=== PATIENT | female | born 1950 | race Two or more races ===

== ENCOUNTER → 2017-09-28 | Outpatient (CLI) | payer OTHER | LOC: CIMAGING 14:08 | DX: Z12.31 Encounter for screening mammogram for malignant neoplasm of breast (principal) ==

== ENCOUNTER 2017-12-23 23:08 | Emergency (ER) | payer OTHER ==
[2017-12-23] MEDS ORDERED: TDAP ADULT 0.5 ML INJ (BOOSTRIX) IM ONE (23:22)
[2017-12-23] MEDS ORDERED: LET GEL TOPICAL 1 EA SYR TP ONE (23:34)
--- NOTE | 2017-12-23 23:37 | EDPHY ---
H & P Time Seen by Provider: 12/23/17 23:22 HPI/ROS: CC: trip and fall HPI: This 67-year-old female with past medical history significant only for trigeminal neuralgia presents to the emergency room today with her after tripping and falling over a parking curb after dinner out this evening. She was looking up at the [place] and tripped over the parking curb falling onto her left outstretched hand approximately one hour prior to arrival. She has pain, swelling and a deformity of her left wrist. She has pain over the lateral aspect of her left foot. She has an abrasion over her right knee and a small laceration near her right eyebrow. She feels like she has a bruise over her right jaw but states she can't open her mouth fine. She felt slightly dizzy afterward but denies loss consciousness. She does not have a headache. She denies neck pain, back pain, rib pain, abdominal pain, or hip pain. She denies preceding symptoms such as headache, dizziness, chest pain, palpitations , shortness of breath, abdominal pain or any other concerns. She is not on blood thinners. REVIEW OF SYSTEMS: Constitutional: No fever, no chills. Eyes: No discharge. ENT: No sore throat. Respiratory: No cough, no shortness of breath. Cardiac: No chest pain, no palpitations. Gastrointestinal: No abdominal pain, no vomiting. 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 Jon Social History: . Denies tobacco use, denies alcohol use, denies marijuana use. Smoking Status: Never smoked Physical Exam: General Appearance: Alert, mild distress. HEENT: Normocephalic, 1 cm linear laceration just below right eyebrow, no significant soft tissue swelling, tenderness over the right cheek just below the zygomatic arch without palpable abnormality, patient is able to open and close her jaw without difficulty. No malocclusion, no dental or other intraoral injury. Pupils equally round reactive light accommodation, tympanic membranes clear without hemotympanum. Neck: Supple, nontender, no bony step-offs. Back: Nontender without palpable abnormality. Thorax: Nontender without palpable abnormality. Respiratory: Clear to auscultation bilaterally, breath sounds equal. No rales , rhonchi, or wheezing. Cardiovascular: Regular rate and rhythm. No murmurs, gallops, or rubs Gastrointestinal: Abdomen is soft and nontender. Neurological: Awake and alert, sensory and motor exams grossly normal. Skin: Warm and dry, laceration below the right eyebrow as described above. Abrasion to the right patella. Musculoskeletal: There is an obvious bony abnormality of the patient's left wrist. Radial pulse intact. She is tender over the base of the 5th metatarsal left foot. Minimal tenderness over the right patella. No other musculoskeletal abnormality. Psychiatric: Patient is oriented X 3, there is no agitation. DIFFERENTIAL DIAGNOSIS: After history and physical exam differential diagnosis was considered for but not limited to: syncope, arrhythmia, mechanical fall, head injury, laceration, wrist fracture, foot fracture. 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 Wrist X-Ray 12/23/17 23:22 Impression: 1. Comminuted intra-articular fracture of the distal radial metaphysis with mild dorsal angulation. 2. Mildly displaced ulnar styloid fracture. Imaging: I viewed and interpreted images myself Procedures: Procedure: Laceration repair. Verbal consent was obtained from the patient. The 1 cm simple laceration under the right eyebrow was anesthetized using LET. The wound was cleansed and was deemed appropriate for repair with Dermabond. There were no deep structures involved. The wound was repaired with Dermabond and overlying 1/8 inch steri- strips. The wound repair was tolerated well. The procedure was performed by myself and took 5 minutes. ED Course/Re-evaluation: The patient was seen and examined. Vital signs reviewed. Her tetanus immunization was updated. A head CT was discussed with the patient and her who is also a physician. CT scan was declined. He will watch her closely and will bring her back to the emergency department if she develops a headache or any other concerning findings. The small laceration over her right eyebrow was repaired with Dermabond and Steri-Strips. Please refer to procedure note. An x-ray of her left wrist revealed a comminuted, intra- articular distal radial fracture with mild dorsal angulation as well as an ulnar styloid fracture. An x-ray of her left foot showed a mildly displaced avulsion fracture of the 5th metatarsal. The orthopedic physician economic research assistant, Min Rodriguez, was consulted. He asked that the patient call their office tomorrow , Monday, at about noon and they will arrange for follow-up appointment by Monday of this week. A sugar-tong splint was placed on the patient's left upper extremity by the Jovanni Holland. CMS intact status post application as evaluated by me. A sling was applied to the left upper extremity as well. A walking boot was placed on the left lower extremity. The patient was given a take-home pack of Franklin to take as directed as needed. All questions were answered. - Data Points Medications Given: Discontinued Medications Hydrocodone Bitart/Acetaminophen (Franklin 5/325mg Prepack#6) 1 btl TAKEHOME EDNOW ONE Stop: 12/24/17 00:42 Last Admin: 12/24/17 00:47 Dose: 1 btl Diphtheria/Tetanus/Acell Pertussis (Boostrix) 0.5 ml IM .ONCE ONE Stop: 12/23/17 23:23 Last Admin: 12/23/17 23:43 Dose: 0.5 ml Tetracaine/Epinephrine/Lidocaine (Let Gel Topical) 1 ea TP EDNOW ONE Stop: 12/23/17 23:35 Last Admin: 12/23/17 23:41 Dose: 1 ea Departure - Departure Disposition: Home, Routine, Self-Care Clinical Impression: Simple laceration of face Wrist fracture, left Qualifiers: Encounter type: initial encounter Fracture type: closed Qualified Code(s): S62.102A - Fracture of unspecified carpal bone, left wrist, initial encounter for closed fracture Foot fracture, left Qualifiers: Encounter type: initial encounter Fracture type: closed Qualified Code(s): S92.902A - Unspecified fracture of left foot, initial encounter for closed fracture Condition: Good Instructions: Hydrocodone/Acetaminophen (By mouth), Wrist Fracture in Adults ( ED), Foot Fracture in Adults (ED), Splint Care (ED), Steristrips (ED) Additional Instructions: Call Agatha at [facility] tomorrow just after 12 o'clock noon at [phone] to schedule your follow up appointment which will be by Monday of this week. We spoke to the orthopedic physician's economic research assistant HARSH Palma from the Emergency Department. You have been given six tablets of hydrocodone/acetaminophen (also known as Franklin or Vicodin) for pain. Take as directed. Do not take additional Tylenol ( acetaminophen) while taking this medication. You may take ibuprofen as directed. Return to the ER if you have any further problems or concerns. Referrals: Robe Avelar MD [Medical Doctor] - As per Instructions
[2017-12-24] MEDS ORDERED: SKIN ADHESIVE (DERMABOND) 1 EACH TP ONE (00:32)
[2017-12-24] MEDS ORDERED: HYDROCOD/APAP 5/325 PREPACK#6 BTL TAKEHOME ONE (00:41)
[2017-12-24 00:52] VITALS: BP 121/62
== END 2017-12-24 01:01 | disposition home or self-care (01) ==
LOC: CED 23:08
DX: S52.612A Displaced fracture of left ulna styloid process, initial encounter for closed fracture (principal); S92.352A Displaced fracture of fifth metatarsal bone, left foot, initial encounter for closed fracture; S01.81XA Laceration without foreign body of other part of head, initial encounter; Z23 Encounter for immunization; W01.0XXA Fall on same level from slipping, tripping and stumbling without subsequent striking against object, initial encounter; Y92.89 Other specified places as the place of occurrence of the external cause
CPT/HCPCS: 73110-PO; 73630-PO; A4565; L4386

== ENCOUNTER → 2018-03-26 | Outpatient (CLI) | payer OTHER | LOC: FIMAGING 10:37 | PROVIDERS: ATTEND Family Medicine | DX: Z13.820 Encounter for screening for osteoporosis (principal); M81.0 Age-related osteoporosis without current pathological fracture; Z78.0 Asymptomatic menopausal state ==

== ENCOUNTER → 2018-11-13 | Outpatient (CLI) | payer OTHER | LOC: EMCIMAGING 11:46 ==